=== PATIENT | female | born 1965 | race African-American/Black ===

== ENCOUNTER 2019-07-26 13:19 | Emergency (ER) | payer OTHER ==
[2019-07-26 13:39] LABS: Actual Bicarbonate (HCO3a) 25.4 mEq/L (22-28); Analyzer IN Cardio ER; Base Excess (BEa) 0.5 mEq/L (-2.0 to +3.0); CO2 Tension 41.9 mmHg (35.0-45.0); Calcium, Ionized 1.19 mmol/L (1.12-1.30); Carboxyhemoglobin (COHb) 0.5 gm% (0.0-3.0); Hemoglobin (Hb) 12.5 g/dL (12.0-16.0); O2 Tension (PaO2) 195.7 mmHg (80.0-100.0); Potassium - ABG Lab 3.83 mmol/L (3.70-5.30)
[2019-07-26 13:41] LABS: ALV-art Gradient 464.925 (0-20); Puncture Site RRA
[2019-07-26] MEDS ORDERED: Acetaminophen 500 MG TAB ONE (14:54)
== END 2019-07-26 14:59 | disposition home or self-care (01) ==
LOC: ERS 13:19
DX: Z77.098 Contact with and (suspected) exposure to other hazardous, chiefly nonmedicinal, chemicals (principal); I10 Essential (primary) hypertension; Z79.899 Other long term (current) drug therapy
CPT/HCPCS: 82805; 99284